=== PATIENT | female | born 1950 | race Caucasian/White ===

== ENCOUNTER → 2024-06-04 13:59 | Outpatient (REF) | payer MEDICARE, SELFPAY | LOC: HWWDC 13:59 | PROVIDERS: ATTENDING PHYSICIAN Student in an Organized Health Care Education/Training Program; OTHER PHYSICIAN Surgery; REFERRING PHYSICIAN Obstetrics & Gynecology Gynecology | DX: Z12.31 Encounter for screening mammogram for malignant neoplasm of breast (principal) | CPT/HCPCS: 77063; 77067 ==

== ENCOUNTER → 2024-06-13 15:47 | Outpatient (REF) | payer MEDICARE, SELFPAY | LOC: HWRAD 15:47 | PROVIDERS: ATTENDING PHYSICIAN Internal Medicine Rheumatology; FAMILY PHYSICIAN Student in an Organized Health Care Education/Training Program | DX: M25.569 Pain in unspecified knee (principal) | CPT/HCPCS: 73560; 73565 ==

== ENCOUNTER → 2024-09-19 13:18 | Outpatient (REF) | payer MEDICARE, SELFPAY | LOC: HWRAD 13:18 | PROVIDERS: ATTENDING PHYSICIAN Student in an Organized Health Care Education/Training Program | DX: R91.8 Other nonspecific abnormal finding of lung field (principal) | CPT/HCPCS: 71250 ==

== ENCOUNTER → 2025-03-26 10:33 | Outpatient (REF) | payer MEDICARE, SELFPAY | LOC: WDC 10:33 | PROVIDERS: ATTENDING PHYSICIAN Obstetrics & Gynecology Gynecology; FAMILY PHYSICIAN Student in an Organized Health Care Education/Training Program | DX: N64.4 Mastodynia (principal) | CPT/HCPCS: 76642; 77061; 77065 ==

== ENCOUNTER → 2025-05-27 14:50 | Outpatient (REF) | payer MEDICARE, SELFPAY | LOC: HWRAD 14:50 | PROVIDERS: ATTENDING PHYSICIAN Student in an Organized Health Care Education/Training Program | DX: M25.552 Pain in left hip (principal); M54.32 Sciatica, left side | CPT/HCPCS: 72110; 73502 ==

== ENCOUNTER → 2025-06-02 13:39 | Outpatient (REF) | payer MEDICARE, SELFPAY | LOC: HWRAD 13:39 | PROVIDERS: ATTENDING PHYSICIAN Internal Medicine Rheumatology; FAMILY PHYSICIAN Student in an Organized Health Care Education/Training Program | DX: M81.0 Age-related osteoporosis without current pathological fracture (principal) | CPT/HCPCS: 77080 ==

== ENCOUNTER → 2025-06-09 15:34 | Outpatient (REF) | payer MEDICARE, SELFPAY | LOC: HWWDC 15:34 | PROVIDERS: ATTENDING PHYSICIAN Obstetrics & Gynecology Gynecology; FAMILY PHYSICIAN Student in an Organized Health Care Education/Training Program | DX: Z12.31 Encounter for screening mammogram for malignant neoplasm of breast (principal) | CPT/HCPCS: 77063; 77067 ==

== ENCOUNTER 2025-07-16 13:43 | Outpatient (RCR) | payer MEDICARE, SELFPAY | END 2025-07-16 23:59 | disposition home or self-care (01) | LOC: ROT 13:43 | PROVIDERS: ATTENDING PHYSICIAN Internal Medicine Rheumatology; FAMILY PHYSICIAN Student in an Organized Health Care Education/Training Program | DX: M18.12 Unilateral primary osteoarthritis of first carpometacarpal joint, left hand (principal); M25.542 Pain in joints of left hand; Z73.6 Limitation of activities due to disability; M06.9 Rheumatoid arthritis, unspecified; M15.9 Polyosteoarthritis, unspecified | CPT/HCPCS: 97018; 97110; 97140; 97166; 97535 ==